=== PATIENT | male | born 1960 | race African-American/Black ===

== ENCOUNTER 2018-10-04 16:11 | Outpatient (CLI) | payer BC ==
--- NOTE | 2018-10-04 18:32 | RAD ---
TWO VIEWS OF THE RIGHT FEMUR 10/04/18 COMPARISON: None. HISTORY: Right hip pain that radiates down the femur. FINDINGS: Two views of the right femur shows no evidence of acute fracture or dislocation. There is severe dege nerative changes in the right hip joint and in the lateral femorotibial compartment of the knee. IMPRESSION: 1. No evidence of acute osseous abnormality. 2. Right hip and knee osteoarthritis. POS: CET
--- NOTE | 2018-10-04 18:35 | RAD ---
TWO VIEWS OF THE RIGHT HIP 10/04/18 COMPARISON: None. HISTORY: Chronic right hip pain that radiates down the femur. FINDINGS: Two views of the right hip shows no evidence of acute fracture or dislocation. There is severe joint space narrowing and osteophyte formation in the right hip joint consistent with osteoarthritis. IMPRESSION: Severe right hip osteoarthritis. POS: CET
== END 2018-10-04 16:12 | disposition home or self-care (01) ==
LOC: SCSRAD 16:11
PROVIDERS: ATTEND Nurse Practitioner Family
DX: M25.551 Pain in right hip (principal); M79.604 Pain in right leg; M16.11 Unilateral primary osteoarthritis, right hip; M17.11 Unilateral primary osteoarthritis, right knee

== ENCOUNTER 2018-10-13 16:05 | Emergency (ER) | payer BC | END 2018-10-13 16:46 | disposition home or self-care (01) | LOC: ERS 16:05 | DX: M25.551 Pain in right hip (principal); M25.561 Pain in right knee; E11.9 Type 2 diabetes mellitus without complications; I10 Essential (primary) hypertension; Z87.891 Personal history of nicotine dependence; Z79.899 Other long term (current) drug therapy; Z79.84 Long term (current) use of oral hypoglycemic drugs | CPT/HCPCS: 99283 ==

== ENCOUNTER 2018-12-10 13:58 | Outpatient (CLI) | payer BC ==
[2018-12-10 14:38] LABS: #Basophils 0.1 thou/uL (0.0-0.2); #Eosinphils 0.4 thou/uL (0.0-0.7); #Lymphocytes 1.6 thou/uL (1.20-3.40); #Monocytes 0.7 thou/uL (0.11-0.59); %Basophils 1.1 % (0.0-1.0); %Eosinophils 4.4 % (0.0-10.0); %Lymphocytes 16.7 % (21.0-51.0); %Monocytes 6.8 % (0.0-10.0); %Neutrophils 70.9 % (42.0-75.0); Hemoglobin 15.3 g/dL (14.0-18.0); Mean Corpuscular HGB CONC 32.8 g/dL (32.0-36.0); Mean Corpuscular Hemoglobin 31.5 pg (27.0-31.0); Mean Corpuscular Volume 96.1 fL (78.0-98.0); Mean Platelet Volume 6.6 fL (7.4-10.4); Platelet Count 302 thou/uL (130-400); RBC Distribution Width 13.7 % (11.5-14.5); Red Blood Cell (RBC) Count 4.84 mill/uL (4.70-6.10); White Blood Cell (WBC) Count 9.8 thou/uL (4.8-10.8)
--- NOTE | 2018-12-10 14:48 | RAD ---
FRONTAL AND LATERAL IMAGING CHEST: Date: 12-10-18 Comparison: 08-09-16 History: Pre-operative patient. FINDINGS: There is no pneumothorax, pleural fluid, focal consolidation or alveolar edema. Heart and mediastinal contours are grossly unremarkable. IMPRESSION: No acute findings. POS: OFF
[2018-12-10 15:01] LABS: ALT (SGPT) 32 U/L (8-55); AST (SGOT) 19 U/L (5-34); Albumin 4.3 g/dL (3.5-5.0); Alkaline Phosphatase 62 U/L (40-150); Anion Gap 14 mmol/L (10-20); BUN (Urea Nitrogen) 15 mg/dL (8.4-25.7); Bilirubin, Total 0.7 mg/dL (0.2-1.2); Calc. Creatinine Clearance 0 mL/min (70-130); Calcium 10.1 mg/dL (7.8-10.44); Carbon Dioxide 23 mmol/L (22-29); Chloride 106 mmol/L (98-107); Estimated GFR-MDRD 90; Globulin 3.6 g/dL (2.4-3.5); Glucose 125 mg/dL (70-105); Potassium 4.1 mmol/L (3.5-5.1); Protein, Total 7.9 g/dL (6.0-8.3); Sodium 139 mmol/L (136-145)
== END 2018-12-10 13:59 | disposition home or self-care (01) ==
LOC: LABBT 13:58
PROVIDERS: ATTEND Internal Medicine Cardiovascular Disease
DX: Z01.812 Encounter for preprocedural laboratory examination (principal); R94.39 Abnormal result of other cardiovascular function study
CPT/HCPCS: 71046; 80053; 85025

== ENCOUNTER 2018-12-14 05:48 | Day surgery (SDC) | payer BC ==
[2018-12-10 14:26] VITALS: BMI 36.4
[2018-12-14] MEDS ORDERED: Heparin 10,000 UNITS/1 ML VIAL ONE (06:34)
[2018-12-14] MEDS ORDERED: Fentanyl 100 MCG/2 ML VIAL ONE (07:07)
[2018-12-14] MEDS ORDERED: Midazolam HCl 2 mg/2 ml Vial ONE (07:07)
[2018-12-14] MEDS ORDERED: Protamine Sulfate 50 MG/5 ML VIAL ONE (07:32)
[2018-12-14] MEDS ORDERED: Iopamidol 370 76% 50 ML VIAL FS ONE (09:29)
[2018-12-14] MEDS ORDERED: Iopamidol 370 76% 100 ML VIAL ONE (09:29)
== END 2018-12-14 15:50 | disposition home or self-care (01) ==
LOC: CCL 05:48
PROVIDERS: ATTEND Internal Medicine Cardiovascular Disease
PROC: B2101ZZ Fluoroscopy of Single Coronary Artery using Low Osmolar Contrast (ICD-10-PCS; principal; 2018-12-14)
PROC: 4A023N7 Measurement of Cardiac Sampling and Pressure, Left Heart, Percutaneous Approach (ICD-10-PCS; principal; 2018-12-14)
DX: I25.10 Atherosclerotic heart disease of native coronary artery without angina pectoris (principal); I11.0 Hypertensive heart disease with heart failure; I50.9 Heart failure, unspecified; E78.5 Hyperlipidemia, unspecified; E11.9 Type 2 diabetes mellitus without complications; E78.00 Pure hypercholesterolemia, unspecified; E66.01 Morbid (severe) obesity due to excess calories; Z68.36 Body mass index [BMI] 36.0-36.9, adult; Z79.82 Long term (current) use of aspirin; Z79.84 Long term (current) use of oral hypoglycemic drugs; Z79.899 Other long term (current) drug therapy; Z87.891 Personal history of nicotine dependence; Z95.1 Presence of aortocoronary bypass graft
CPT/HCPCS: 85347; 93458; 99152; J1644; J2250; J2720; J3010; Q9967

== ENCOUNTER 2019-05-17 07:40 | Day surgery (SDC) | payer BC ==
--- NOTE | 2019-05-17 07:57 | HP ---
HISTORY OF PRESENT ILLNESS: This is a 58-year-old male who comes in for colonoscopy for colon cancer screening. The patient has no specific GI symptoms. He has no history of abdominal pain or hematochezia. No change in bowel habits. He has no family history of colon cancer. ALLERGIES: NONE. SOCIAL HISTORY: The patient does not smoke or drink alcohol. MEDICAL ILLNESSES: 1. Obesity. 2. Hypertension. 3. Diabetes. 4. Hyperlipidemia. 5. Coronary artery disease, stable. PHYSICAL EXAMINATION: GENERAL: The patient is obese. VITAL SIGNS: Pulse is 70, blood pressure is 130/80. Weight 287 pounds. HEENT: Conjunctivae clear. CARDIOVASCULAR: First and second heart sounds heard. LUNGS: Clear to auscultation. ABDOMEN: Soft. No organomegaly. No tenderness. No masses. EXTREMITIES: Reveal no edema. ADMITTING DIAGNOSIS: A 58-year-old male, undergoing colonoscopy for colon cancer screening. Job ID: [id number]
[2019-05-17] MEDS ORDERED: Metoprolol Tartrate 5 MG/5 ML VIAL ONE (10:00)
[2019-05-17] MEDS ORDERED: Metoprolol Tartrate 5 MG/5 ML VIAL IVP SCH (10:00)
[2019-05-17] MEDS ORDERED: PROPOFOL 40 ML ONE (10:42)
[2019-05-17] MEDS ORDERED: Midazolam HCl 2 mg/2 ml Vial ONE (10:55)
--- NOTE | 2019-05-17 15:18 | OP ---
DATE OF PROCEDURE: 05/17/2019 OPERATIVE PROCEDURE: Colonoscopy with polypectomy. PREOPERATIVE DIAGNOSIS: Colon cancer screening. POSTOPERATIVE DIAGNOSES: 1. Sessile polyp in descending colon, status post snare cautery with good hemostasis. 2. Hemorrhoids. DESCRIPTION OF PROCEDURE: The patient was placed on his left lateral position and was given sedation by Anesthesia Department. A rectal exam was done before the scope was advanced into the rectum. No lesions felt on rectal exam. A [employer]ax video colonoscope was introduced into the rectum and advanced all the way into the cecum. The prep was good. In some areas, he had some redundant sigmoid colon mucosa. The mucosa appeared normal. In the appendiceal orifice, ileocecal valve, cecum, no pathology seen. Withdrawal of scope from the cecum to ascending colon, hepatic flexure, no pathology seen. In the transverse colon, splenic flexure, no pathology seen. The descending colon showed a sessile polyp. The polyp was removed with snare cautery. In the sigmoid colon, no pathology. Rectal hemorrhoids. DISCHARGE PLANNING: This is a 58-year-old male, came for colonoscopy for colon cancer screening. The patient underwent colonoscopy, polypectomy. DISCHARGE RECOMMENDATION: 1. The patient advised to call me if he develops abdominal pain, hematochezia. 2. In the absence of any above symptoms, he will come back to me in 2 weeks. 3. Repeat colonoscopy in 5 years. Job ID: [id number]
[2019-05-17] MEDS ORDERED: Lidocaine 1% PF 5 ML VIAL ONE (16:27)
[2019-05-17] MEDS ORDERED: PROPOFOL 200 MG/20 ML VIAL ONE (16:27)
== END 2019-05-17 12:04 | disposition home or self-care (01) ==
LOC: SDC 07:40
PROVIDERS: ATTEND Internal Medicine Gastroenterology
PROC: 0DBL8ZX Excision of Transverse Colon, Via Natural or Artificial Opening Endoscopic, Diagnostic (ICD-10-PCS; principal; 2019-05-17)
DX: Z12.11 Encounter for screening for malignant neoplasm of colon (principal); D12.3 Benign neoplasm of transverse colon; K64.9 Unspecified hemorrhoids; E66.9 Obesity, unspecified; I10 Essential (primary) hypertension; E11.9 Type 2 diabetes mellitus without complications; E78.5 Hyperlipidemia, unspecified; I25.10 Atherosclerotic heart disease of native coronary artery without angina pectoris; Z68.36 Body mass index [BMI] 36.0-36.9, adult; Z79.82 Long term (current) use of aspirin; Z79.84 Long term (current) use of oral hypoglycemic drugs; Z79.899 Other long term (current) drug therapy
CPT/HCPCS: 88305; J2001; J2250; J2704

== ENCOUNTER 2021-02-25 15:24 | Outpatient (CLI) | payer BC | END 2021-02-25 15:25 | disposition home or self-care (01) | LOC: BICRAD 15:24 | PROVIDERS: ATTEND Internal Medicine Hematology & Oncology | DX: C90.00 Multiple myeloma not having achieved remission (principal); M16.11 Unilateral primary osteoarthritis, right hip; M89.8X3 Other specified disorders of bone, forearm | CPT/HCPCS: 77075 ==

== ENCOUNTER 2021-03-10 12:00 | Outpatient (CLI) | payer BC | END 2021-03-10 12:01 | disposition home or self-care (01) | LOC: BICRAD 12:00 | PROVIDERS: ATTEND Internal Medicine Hematology & Oncology | DX: R22.32 Localized swelling, mass and lump, left upper limb (principal); D47.2 Monoclonal gammopathy ==